=== PATIENT | female | born 1930 | race Caucasian/White ===

== ENCOUNTER → 2018-07-29 | Day surgery (SDC) | payer OTHER ==
[~2018-07-29] MED LIST: BUPIVACAINE HCL/PF 0.5% (5MG/ML) 10 ML VIAL ONE; ERYTHROMYCIN 0.5% OPHTHALMIC OINTMENT 3.5 GM TUBE ONE; GUM MASTIC/STORAX/MSAL/ALCOHOL 1 DRP DROPSBTL MC ONE; LIDOCAINE 1%/EPI 1:100000 (20 ML MULTI DOSE VIAL) ONE; METOPROLOL TARTRATE 5 MG/5 ML VIAL ONE; MIDAZOLAM HCL 2 MG/2 ML SINGLE DOSE VIAL ONE; ONDANSETRON 4 MG/2 ML VIAL IVPUSH PRN; POVIDONE-IODINE 5% OPHTHALMIC PREP 30 ML SOLUTION ONE; PROMETHAZINE HCL 25 MG/1 ML VIAL IVPB PRN; PROPOFOL 20 ML ONE; TETRACAINE 0.5% OPHTH SOLN 2 ML BOTTLE ONE
[2018-07-29 09:07] VITALS: BMI 27.4
--- NOTE | 2018-07-29 09:22 | PDOC ---
History of Present Illness - General Chief Complaint: Wound Stated Complaint: wound Time Seen by Provider: 07/29/18 09:02 - History of Present Illness Initial Comments: 07/29/18 09:17 87 F with recent Moh's surgery yesterday, presenting to ED for evaluation of surgical wound. Pt had procedure done to L cheek by Dr. Carrington yesterday. Pt denies F/C. Denies bleeding. Endorses mild pain. Past History - Past Medical History Allergies/Adverse Reactions: Allergies Allergy/AdvReac Type Severity Reaction Status Date / Time No Known Drug Allergies Allergy Verified 07/29/18 09:02 Home Medications: Ambulatory Orders Acetaminophen [Tylenol] 650 mg PO ASDIR PRN 07/28/18 Calcium Carbonate [Super Calcium] 600 mg PO DAILY 07/28/18 Cholecalciferol (Vitamin D3) [Vitamin D3] 50,000 unit PO MONTHLY 07/28/18 Digoxin [Lanoxin -] 0.125 mg PO DAILY 07/28/18 Furosemide 40 mg PO DAILY 07/28/18 Letrozole 2.5 mg PO DAILY 07/28/18 Methimazole 5 mg PO DAILY 07/28/18 Metoprolol Succinate [Toprol Xl] 100 mg PO DAILY 07/28/18 Rivaroxaban [Xarelto -] 15 mg PO DAILY 07/28/18 Anemia: No Asthma: No Cancer: Yes (RIGHT BREAST CANCER) Cardiac Disorders: Yes (ATRIAL FIB;ASHD) CVA: No COPD: Yes (H/O MALIGNANT PLEURAL EFFUSION; SOB;HDZ,COPD) CHF: Yes Dementia: No Diabetes: No GI Disorders: Yes (GERD) Disorders: Yes (UTI'S IN THE PAST) HTN: Yes Hypercholesterolemia: No Liver Disease: No Seizures: No Thyroid Disease: Yes (HYPOTHYROID) - Suicide/Smoking/Psychosocial Hx Smoking History: Never smoked Have you smoked in the past 12 months: No Hx Alcohol Use: No Drug/Substance Use Hx: No Substance Use Type: None Review of Systems - Review of Systems Comments:: 07/29/18 09:22 "GENERAL/CONSTITUTIONAL: No fever or chills. No weakness. HEAD, EYES, EARS, NOSE AND THROAT: No change in vision. No ear pain or discharge. No sore throat. CARDIOVASCULAR: No chest pain, no shortness of breath, no loss of consciousness RESPIRATORY: No cough, wheezing, or hemoptysis. GASTROINTESTINAL: No nausea, vomiting, diarrhea or constipation. GENITOURINARY: No dysuria, frequency, or change in urination. MUSCULOSKELETAL: No joint or muscle swelling or pain. No neck or back pain. SKIN: No rash NEUROLOGIC: No vertigo, no change in strength/sensation. ENDOCRINE: No increased thirst. No abnormal weight change. HEMATOLOGIC/LYMPHATIC: No anemia, easy bleeding, or history of blood clots. ALLERGIC/IMMUNOLOGIC: No hives or skin allergy. *Physical Exam - Vital Signs Last Vital Signs Temp Pulse Resp BP Pulse Ox 98.2 F 72 18 154/69 100 07/29/18 09:01 07/29/18 09:01 07/29/18 09:01 07/29/18 09:01 07/29/18 09:01 - Physical Exam Comments: 07/29/18 09:24 GENERAL: Awake, alert, and fully oriented, in no acute distress. HEAD: No signs of trauma EYES: PERRLA, EOMI, sclera anicteric, conjunctiva clear ENT: Auricles normal inspection, hearing grossly normal, nares patent, oropharynx clear without exudates. Moist mucosa NECK: Nontender, no stepoffs, Normal ROM, supple, no lymphadenopathy, JVD, or masses LUNGS: Breath sounds equal, clear to auscultation bilaterally. No wheezes, and no crackles HEART: Regular rate and rhythm, normal S1 and S2, no murmurs, rubs or gallops ABDOMEN: Soft, nontender, normoactive bowel sounds. No guarding, no rebound. No masses EXTREMITIES: Normal range of motion, no edema. No clubbing or cyanosis. No cords, erythema, or tenderness NEUROLOGICAL: Cranial nerves II through XII intact. 5/5 strength and sensation in all extremities, Normal speech, normal gait, normal cerebellar function SKIN: + surgical wound to L cheek, no erythema or induration, no fluctuance, no drainage Medical Decision Making - Medical Decision Making 07/29/18 09:25 87 F with surgical wound to L cheek s/p Moh's procedure yesterday. Spoke with Dr. Carrington, who recommends pt go directly to OR for reconstruction today. *DC/Admit/Observation/Transfer Diagnosis at time of Disposition: Abnormal surgical wound - Discharge Dispostion Condition at time of disposition: Stable Decision to Admit order: Yes - Referrals - Patient Instructions - Post Discharge Activity - Attestations Physician Attestion: 07/29/18 09:25 I, Dr. Osmani Lira MD, attest that this document has been prepared under my direction and personally reviewed by me in its entirety. I further attest, that it accurately reflects all work, treatment, procedures and medical decision -making performed by me.
[2018-07-29 13:48] VITALS: TEMP 97.7
--- NOTE | 2018-07-29 15:14 | OP ---
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 POSTOPERATIVE DIAGNOSIS: Carcinoma left lower eyelid and cheek, extensive. PROCEDURE PERFORMED: Reconstruction of left lower eyelid and cheek, with: 1. Lateral tarsal strip left lower lid and lateral canthoplasty, left. 2. Extensive rotational flap from the left cheek in the superficial fatty plane to the left lower lid. 3. Excision deformities. 4. Z-plasty on the left nasojugal fold to the left lower lid cheek junction and repair of residual defect, following extensive cheek rotation. SURGEON: Praveena Carrington M.D. SUSTAINABILITY PROJECT MANAGER: Micky Madsen M.D. ANESTHESIA: Local with sedation. COMPLICATIONS: None. ESTIMATED BLOOD LOSS: 10 to 20 mL DESCRIPTION OF PROCEDURE: The patient was brought to the operating room and placed on the operating room table. Vital signs were monitored by Anesthesia. Tetracaine was placed in both eyes. The lateral canthal line was marked on the left side of the canthus, and a large rotational flap was marked out after the wound was measured. The wound measured approximately 25 to 30 mm by 25 to 30 mm, extending across the entire inferior half of the left lower eyelid into the ends of the cheek. After a time-out was performed, a 50/50 mixture of 2% Xylocaine with 1:100,000 epinephrine and 0.5% Marcaine was injected diffusely throughout the left lower lid defect, the left check, pretragal region and the helix of the left ear and the left lateral canthus down to periosteum, and the lateral third of the upper and lower lids. The patient was then prepped and draped in the usual sterile fashion, exposing both eyes and the left ear. The right eye was maintained closed. The defect had been previously measured at 25 to 30 mm on each side. The previously marked rotational flap was then incised through the cutaneous layer and superficial fatty layer, underneath the skin. The flap was elevated by sharp resection with Olsen scissors, staying above the muscular plane, and this allowed rotation of this significant flap into almost the entire length of the lower lid, leaving a baptism area that was not closed. The donor site of the flap was thinned of the fatty tissue without entering into the neurovascular or muscular plane. The donor site was closed with subcutaneous 3-0 chromic sutures in a horizontal fashion. The amount of skin missing from the eyelid was measured at approximately 7 mm, with 4 mm of skin remaining over the pretarsal area and inferior half of the eyelid had been excised, along with some of the muscle. Therefore, the superficial portion of the flap was thinned in the area where it was going to be covering the eyelid. It was rotated into position and sutured with interrupted buried 5-0 chromic sutures throughout the perimeter and advanced nasally toward the nasal wound and closed with 5-0 chromic there. Once that was in place, standard cutaneous deformities removed at the inferolateral end of the flap, and these tissues were closed with buried 5-0 chromic as well, as well as the area where the flap met the nasojugal fold along the nasal side wall. This was closed with 5-0 chromic. These were then closed with interrupted and running 6-0 plain sutures throughout, plastic technique. However, in order to support the eyelid, which presented with an ectropion prior to closure of the flap and its attachment to the surrounding tissues, a lateral canthal incision was made, carried down to periosteum with a Potter needle. The inferior ena of the lateral canthal tendon was released. There was marked overlap over the folding, marked with a sterile marking pen, divided into the anterior and posterior lamella, and the posterior lamella was denuded of epithelium with a tangential scraping with a number 11 blade. The anterior lamella was posteriorly excised, as was the epithelium on the superior surface and the lateral tarsal strip was secured to the internal surface of the orbital rim slightly higher than the contralateral side, reinforced with two 6-0 Vicryl lasso sutures. The lateral canthal angle was recreated with a 5-0 chromic suture, buried through the lopez line of the upper and lower lids. The tarsal strip was then closed with 5-0 Prolene. The excess tarsal strip was overlapped over the folding and closed with 5-0 chromic. The muscle layer was 5-0 chromic and the skin with interrupted 5-0 plain suture, completing the canthoplasty and the lateral tarsal strip supporting the lid. At this point the lateral, horizontal and medial portion of the skin was closed where it met the flap with running interrupted 5-0 plain suture. This left a small defect, triangular in nature, at the inferior edge of the flap, and a small incision was made at the base of the flap, extending up on the side wall of the nose, allowing a triangle of tissue to be elevated. The apex of the defect of this triangular tissue was then advanced toward the nose with a 3-0 chromic suture, which was grabbed in the deep periosteum near the nasal root and deep tissue laterally and this was tied, advancing the defect. At this point Dr. Madsen entered the room and assisted Dr. Carrington in closure of the Z-plasty type flap, in which interrupted 5-0 Prolene sutures were used. The first one was used to advance the cheek horizontally, and then interrupted Prolene was used to close the Z-plasty flap along its perimeter. Attention was paid to the lower lid margin on the left side the entire time, to see whether undue tension was being placed on the lid margin during this closure. It appeared to be acceptable. After which, the inferior arm of the donor site which had been closed with 5-0 chromic was closed with running 5-0 plain, extending down along the side of the nose to the external naris, and then a strip of Telfa and eye patch were placed over the closed eye after erythromycin ointment was placed on all the sutures on the lateral canthus. The eye was closed with Telfa, and 2 eye patches were placed. Gentle fluffs and paper tape were then taped over this for gentle pressure on the rotated flap with Mastisol and paper tape, and the patient was taken to the recovery room in stable condition. PRAVEENA CARRINGTON M.D. JARVIS/[id number]
--- NOTE | 2018-07-29 15:31 | OP ---
DATE OF OPERATION: 07/29/2018 INDICATION OF PROCEDURE: The patient is seen as an intraoperative consult by Dr. Karl Carrington. TITLE OF PROCEDURE: Left upper lip translocation flap reconstruction of defect measuring 1.5 square centimeters. PREOPERATIVE DIAGNOSIS: Wound to left cheek and upper lip status post flap reconstruction of left lower eyelid wound. POSTOPERATIVE DIAGNOSIS: Wound to left cheek and upper lip status post flap reconstruction of left lower eyelid wound. ATTENDING SURGEON: Ashley Roberts MD ANESTHESIA: Moderate sedation. The patient had already received local anesthetic by Dr. Carrington. I do not know what the dose and volume of the anesthetic were. I was called in to see this patient by Dr. Carrington because of his concern that closing this wound would put undue tension on his eyelid flap and create tension on his left lower eyelid. Upon evaluation of the patient, suggestion was made for a transposition flap from the left apical triangle of the lip into this donor site wound. I was asked by Dr. Carrington if I would kindly scrub in to perform the flap as he was unfamiliar with this. I agreed. At this point, I scrubbed into the case. Attempt was made for closure of the donor site wound primarily, but this did creatinine undue tension on the left lower eyelid. The flap of skin was rotated into the donor site defect and sutured in position with a series of interrupted 5-0 nylon suture. Tension was spread over the inset such that it was transmitted entirely to this secondary flap of skin and not in any noticeable way to the left lower eyelid reconstruction. Flap appeared pink and viable in its inset-rotated position. The donor site of this flap was able to be closed transversely primarily putting tension on this closure in a transverse vector which did not put downward tension on the left lower eyelid. This closure was performed with a series of interrupted 5-0 nylon sutures. All tissues were pink and viable at this portion of the procedure. I scrubbed out of the operation. The remainder of the surgery was to be completed by Dr. Karl Carrington. ASHLEY ROBERTS M.D. [id number]
[2018-07-29 16:28] VITALS: BP 123/76; PULSE 90
== END | disposition home or self-care (01) ==
LOC: FER 09:01 → FASUSAT 09:58
PROVIDERS: ATTEND Ophthalmology
PROC: 0JX10ZB Transfer Face Subcutaneous Tissue and Fascia with Skin and Subcutaneous Tissue, Open Approach (ICD-10-PCS; 2018-07-29)
PROC: 0CX0XZZ Transfer Upper Lip, External Approach (ICD-10-PCS; 2018-07-29)
PROC: 08BR0ZZ Excision of Left Lower Eyelid, Open Approach (ICD-10-PCS; principal; 2018-07-29 09:00)
DX: C44.1192 Basal cell carcinoma of skin of left lower eyelid, including canthus (principal); C44.319 Basal cell carcinoma of skin of other parts of face
CPT/HCPCS: 94760; 99282-25